=== PATIENT | female | born 1955 | race Caucasian/White ===

== ENCOUNTER 2021-08-24 06:56 | Outpatient (CLI) | payer MEDICARE ==
[~2021-08-24] VITALS: Ht 162.5 cm; Wt 97.3 kg
[2021-08-24] MEDS ORDERED: LANS30CA PO (12:33)
[2021-08-24] MEDS ORDERED: CALC600T91 PO (12:33)
[2021-08-24] MEDS ORDERED: LOVA20TA2 PO (12:33)
[2021-08-24] MEDS ORDERED: ASPI-999 PO (12:33)
[2021-08-24] MEDS ORDERED: CHOL100048 PO (12:33)
[2021-08-24] MEDS ORDERED: ASCO500C17 PO (12:33)
[2021-08-24] MEDS ORDERED: LEVO13CA4 PO (12:33)
[2021-08-24] MEDS ORDERED: OXYC10TA7 PO (12:33)
[2021-08-24] MEDS ORDERED: EXEM25TA4 PO (12:33)
== END 2021-08-24 13:19 | disposition home or self-care (01) ==
LOC: PREOP 06:56
PROVIDERS: ATTEND Surgery
DX: Z01.818 Encounter for other preprocedural examination (principal)

== ENCOUNTER 2021-09-04 07:41 | Day surgery (SDC) | payer MEDICARE, MEDICAID ==
[~2021-09-04] VITALS: Ht 162.5 cm; Wt 97.3 kg
[~2021-09-04 07:41] MED LIST: ASCO500C17 PO; ASPI-999 PO; CALC600T91 PO; CHOL100048 PO; EXEM25TA4 PO; LANS30CA PO; LEVO13CA4 PO; LOVA20TA2 PO; OXYC10TA7 PO
[2021-09-04] MEDS ORDERED: LACTATED RINGERS 1,000 ML IV STA (07:48)
[2021-09-04 08:06] VITALS: BP 157/83
--- NOTE | 2021-09-04 08:20 | Progress Note-Pre Operative ---
Pre-Operative Progress Note H&P Reviewed The H&P was reviewed, patient examined and no changes noted. Time Seen by Provider: 08:15 Date H&P Reviewed: September 04, 2021 Time H&P Reviewed: 08:15 Pre-Operative Diagnosis: Screening colonoscopy NIESHA MCKENZIE DO September 04, 2021 08:20
[2021-09-04] MEDS ORDERED: MIDAZOLAM 2 MG/2 ML (VERSED) VIAL ONE (08:52)
[2021-09-04] MEDS ORDERED: PROPOFOL INJECTION 50 ML IV ONE (08:52)
[2021-09-04 09:25] VITALS: BP 125/66
--- NOTE | 2021-09-04 09:29 | Progress Note-Post Operative ---
Post-Operative Progess Note Surgeon (s)/Design Editor (s) Surgeon NIESHA MCKENZIE DO Design Editor: none Pre-Operative Diagnosis Screening colonoscopy Post-Operative Diagnosis Polyps diverticula int hemorrhoids Procedure & Operative Findings Date of Procedure 09/04/21 Procedure Performed/Findings Colon with snare polypectomy PROCEDURE NOTE: After informed consent was obtained, the patient was brought to the endoscopy suite, placed in bed in left lateral decubitus position. She was administered IV sedation by the COMMUTER PILOT who then monitored her vitals the entire time, heart rate, blood pressure and pulse ox and the scope was inserted, pushed all the way to about 150 cm and pushed into the cecum. On the way in I found two large polyps in the transverse colon I removed with hot snare. Continued up and found two more polyps in the ascending colon; also removed with hot snare. Once in the cecum I took a picture of appendiceal orifice and of a diverticula in the cecum. Next I slowly withdrew the scope insufflating to look circumferentially at the burroughs starting in the cecum, up the ascending colon to the hepatic flexure, then down the transverse colon, splenic flexure, into the descending colon down in the sigmoid and then into the rectal vault and retroflexed the scope. Took a picture of the internal hemorrhoids. The patient tolerated the procedure. She was recovered in endoscopy suite. Anesthesia Type IV sedation by COMMUT[employer] PILOT Estimated Blood Loss Estimated blood loss (mL): scant Specimens/Packing Specimens Removed asc colon polyp x 2 transverse colon polyp x 2 NIESHA MCKENZIE DO September 04, 2021 09:29
[2021-09-04 09:30] VITALS: BP 112/57
--- NOTE | 2021-09-04 09:31 | Endoscopy Discharge Instruct ---
Endo Procedure/Findings Findings 1.: Polyp 2.: Diverticulosis 3.: Internal Hemorrhoids Discharge Instructions - Activity: You might feel a little sleepy until tomorrow. This is due to the medicine you received to relax you. Until tomorrow, you should: NOT drive a car, operate machinery or power tools. NOT drink any alcoholic beverages. NOT make any important decisions or sign importortant papers. Do not return to work until tomorrow, unless otherwise instructed. Resume previous activities tomorrow. Diet: Start by taking liquids. If you tolerate liquids, advance to solid food. 1.: Colonscopy in 3 years Notify Physician - If you experience excessive bleeding, unusual abdominal pain, fever, or chest pain, contact your doctor immediately. NIESHA MCKENZIE DO September 04, 2021 09:30
[2021-09-04 09:50] VITALS: BP 115/96
--- NOTE | 2021-09-04 13:05 | Anesthesia-General Post-Op ---
MAC Patient Condition Mental Status/LOC: Same as Preop Cardiovascular: Satisfactory Nausea/Vomiting: Absent Respiratory: Satisfactory Pain: Controlled Complications: Absent Post Op Complications Complications None Follow Up Care/Instructions Patient Instructions None needed. Anesthesiology Discharge Order Discharge Order Patient is doing well, no complaints, stable vital signs, no apparent adverse anesthesia problems. No complications reported per nursing. RAN HAGEN CRNA September 04, 2021 13:05
== END 2021-09-04 10:12 | disposition home or self-care (01) ==
LOC: ENDO 07:41
PROVIDERS: ATTEND Surgery
DX: Z12.11 Encounter for screening for malignant neoplasm of colon (principal); D12.3 Benign neoplasm of transverse colon; D12.2 Benign neoplasm of ascending colon; K57.30 Diverticulosis of large intestine without perforation or abscess without bleeding; K64.8 Other hemorrhoids; Z80.0 Family history of malignant neoplasm of digestive organs; Z85.3 Personal history of malignant neoplasm of breast; E66.9 Obesity, unspecified; Z68.36 Body mass index [BMI] 36.0-36.9, adult; G47.33 Obstructive sleep apnea (adult) (pediatric)

== ENCOUNTER → 2022-02-12 | Outpatient (CLI) | payer MEDICARE, MEDICAID ==
[~2022-02-12] MED LIST changes: +REGADENOSON 0.4 MG/5 ML SYR (LEXISCAN) IV ONE
[2022-02-12] MEDS: CATHETER FLUSH 10 ML SYR IVP PRN ×2 (07:40→08:59)
[2022-02-12 08:59] VITALS: BP 170/101
--- NOTE | 2022-02-12 12:38 | Cardiology Stress Test Report ---
Stress Test Report Date of Procedure/Referring: Date of Procedure: Feb 12, 2022 PCP Bennie Escalona MD Admitting Physician Admitting Physician: Attending Physician: Bennie Escalona MD Indications: Baseline Heart Rate: 78 Baseline Blood Pressure: Blood Pressure Systolic: 170 Blood Pressure Diastolic: 101 Baseline Vitals Vital Signs Date Time Temp Pulse Resp B/P (MAP) Pulse Ox O2 Delivery O2 Flow Rate FiO2 02/12/22 08:59 78 170/101 (124) 99 Room Air Baseline EKG: Baseline EKG: NSR Summary After explaining the procedure to the patient, she signed a consent and then brought to the stress nuclear laboratory. Patient received 0.4 mg Lexiscan for stress test, ECG, heart rate and blood pressure were monitored continuously. Resting and stress dose of radio tracer were injected, imaging was acquired and reviewed in short axis, horizontal long axis and vertical long axis views. TID: 1.16 SSS: 1 SDS: 1 EF: 67 1. Patient tolerated Lexiscan well 2. No significant ischemia or infarction noted on SPECT images 3. Normal left ventricular size, ejection fraction 67% CC CRYSTAL Deutsch MD Feb 12, 2022 12:38
== END ==
LOC: CARD 07:30
PROVIDERS: ATTEND Family Medicine
DX: E03.9 Hypothyroidism, unspecified (principal)
CPT/HCPCS: 78452; 93017